=== PATIENT | male | born 1995 | race Caucasian/White ===

== ENCOUNTER 2017-02-17 07:22 | Emergency (ER) | payer OTHER ==
[~2017-02-17] VITALS: Ht 190.5 cm; Wt 63.5 kg
[2017-02-17] MEDS ORDERED: OSELB75 PO (07:42)
[2017-02-17] MEDS ORDERED: ZOFRAN4 MG PO (07:42)
[2017-02-17 07:50] VITALS: BP 123/86
== END 2017-02-17 07:50 | disposition home or self-care (01) ==
LOC: M.ERS 07:22
DX: J11.1 Influenza due to unidentified influenza virus with other respiratory manifestations (principal)